=== PATIENT | female | born 1970 | race American Indian/Alaskan Native ===

== ENCOUNTER 2018-03-23 10:51 | Outpatient (CLI) | payer BC ==
--- NOTE | 2018-03-23 15:36 | Mammography Report ---
BILATERAL DIGITAL SCREENING MAMMOGRAM with CAD: 03/23/18 10:51:00 CLINICAL: Routine screening. COMPARISON:12/01/15 FINDINGS: The breasts are almost entirely fatty. No mass, architectural distortion or suspicious calcifications. IMPRESSION: No mammographic evidence of malignancy. BI-RADS CATEGORY: 1 - - Negative RECOMMENDATION: Routine mammographic screening in one year. COMMENT: Patient follow-up letters are generated by our [employer] application.
== END 2018-03-23 10:52 | disposition home or self-care (01) ==
LOC: MAMMO 10:51
PROVIDERS: ATTEND Obstetrics & Gynecology
DX: Z12.31 Encounter for screening mammogram for malignant neoplasm of breast (principal)
CPT/HCPCS: 77067

== ENCOUNTER 2018-07-28 05:56 | Inpatient (IN) | payer BC ==
--- NOTE | 2018-07-23 23:39 | History and Physical Report ---
History of Present Illness Date of examination: 07/20/18 History of present illness: Patient has been reassessed/reevaluated. H&P has been reviewed. No interval changes. This is a 48 years old female who presents with menstrual disorder. She complains of irregular menses, heavy bleeding, dysmenorrhea, history of fibroids and cramping, but denies mid-cycle spotting, lack of menses, clotting, history of ovarian cysts, history of thyroid disease, history of PCOS, history of bleeding disorder, lightheadedness and fatigue. Menstrual flow lasts > 7 days. The patient also presents with uterine fibroids. She complains of pelvic pressure, menorrhagia and intermenstrual bleeding, but denies abdominal pain, abdominal pressure and pelvic pain. Prior to today's visit the patient has had US of pelvis. Patient's work up has included hysterosonograms with benign endometrial biopisies. Patient desires definitive treatment . Vital Signs: Patient Profile: 48 Years Old Female Height: 63 inches (160.02 cm) Weight: 207 pounds (94.09 kg) BMI: 36.66 BSA: 1.96 Past History : 3 Term Births: 1 Premature Births: 0 Living Children: 1 Para: 1 Aborta: 2 Elect. Ab: 0 Spont. 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 of genital herpes: no Partner hx. of genital herpes: no Hx of STD: None Current Allergies (reviewed today): No known allergies Past Medical History: Fibroids Past Surgical History: Appendectomy salpingectomy-ectopic Family History Summary: General Comments - FH: Family History of Diabetes Social History: Patient is no e/t/d Risk Factors: Smoked Tobacco Use: Never smoker Smokeless Tobacco Use: Never Passive smoke exposure: no Drug use: no HIV high-risk behavior: no Alcohol use: no Exercise: no Seatbelt use: 100 % Review of Systems General Denies fever, chills, sweats, anorexia, fatigue, weakness, malaise, weight loss and sleep disorder. Complains of menorrhagia, abnormal vaginal bleeding and pelvic pain. Denies vaginal discharge, incontinence, dysuria, hematuria, urinary frequency, amenorrhea, genital sores, decreased libido, painful periods, painful sex, urinary urgency, hot flashes, vaginal dryness, vaginal itching and vaginal odor. CV Denies chest pains, palpitations, syncope, dyspnea on exertion, orthopnea, PND and peripheral edema. Resp Denies cough, dyspnea at rest, excessive sputum, hemoptysis, wheezing and pleurisy. GI Denies nausea, vomiting, diarrhea, constipation, change in bowel habits, abdominal pain, melena, hematochezia, jaundice, gas/bloating, indigestion/heartburn, dysphagia and odynophagia. Breast Denies left breast lump, right breast lump, nipple discharge, bloody discharge from nipple, breast pain, abnormal mammogram and breast enlargement. Psych Denies depression, anxiety, irritability and mood swings. Past History Past Medical History: other (See HPI) Past Surgical History: Other (See HPI) Social history: other (See HPI) Family history: other (See HPI) Medications and Allergies Allergies Allergy/AdvReac Type Severity Reaction Status Date / Time No Known Allergies Allergy Unverified 07/24/18 17:14 Home Medications Medication Instructions Recorded Confirmed Last Taken Type Ranitidine HCl [Zantac 150 MG TAB] 150 mg PO HS 07/24/18 07/24/18 Unknown Hist ory Review of Systems Constitutional: other (See HPI) Exam - Physical Exam Narrative exam: HEENT: normocephalic, no lesions or deformities Skin no ulcers, xanthomas Chest: respiratory effort normal, clear to auscultation Breasts: skin/areolae normal, no masses, no nipple discharge, no marquis thema/warmth/tenderness, and axillae normal. 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 No evidence of cystocele or rectocele. blood in vault Cervix: normal appearance, no lesions, no discharge Uterus: enlarged uterus 8 - 10 weeks size Adnexae: no masses or tenderness Rectovaginal: exam defered Results - Labs CBC & Chem 7: 07/27/18 10:05 07/27/18 10:05 Assessment and Plan - Patient Problems (1) Intramural leiomyoma of uterus Current Visit: No Status: Acute Plan to address problem: Diagnosis explained to patient . Questions answered. . Discussed with patient various medical, surgical and radiological therapies common for treatment including myomectomy hysterectomy and uterine artery embolization Patient desires definitive treatment Patient desires hysterectomy Discussed risks and benefits of laparotomy, laparoscopy, vaginal and robotic assisted approaches for hysterectomies Patient desires robotic assisted total hysterectomy. Patient desires robotic assisted total hysterectomy. Consent reviewed and signed . The risks and alternatives for this surgery were reviewed with the patient. Discuss the risks of the surgery including infection, bleeding possibly heavy enough to require a blood transfusion, possible damage to bowel, bladder or ureter. Courtney ent understand that this surgery with make her sterile.Patient understands if her ovaries are removed she will become menopausal. Also if unable to complete robitcally a laparotomy may be required. Patient advised the small risks of spreading of malignancy if morcellator is used during the surgery patient understands and approve of use if necessary (2) Menorrhagia Current Visit: No Status: Chronic Qualifiers: Menorrahagia type: with irregular cycle Qualified Code(s): N92.1 - Excessive and frequent menstruation with irregular cycle Plan to address problem: Probably secondary to # 1
[2018-07-27 10:32] LABS: Basophils # (Auto) 0.1 K/mm3 (0.0-0.1); Basophils % (Auto) 0.9 % (0.0-1.8); Eosinophils # (Auto) 0.2 K/mm3 (0.0-0.4); Eosinophils % (Auto) 2.7 % (0.0-4.3); Hemoglobin 8.9 gm/dl (10.1-14.3); Lymphocytes # (Auto) 1.6 K/mm3 (1.2-5.4); Mean Corpuscular HGB Conc 31 % (30-34); Mean Corpuscular Volume 83 fl (79-97); Monocytes # (Auto) 0.7 K/mm3 (0.0-0.8); Monocytes % (Auto) 10.4 % (0.0-7.3); Platelet Count 404 K/mm3 (140-440); Red Blood Count 3.48 M/mm3 (3.65-5.03)
[2018-07-27 11:02] LABS: Alanine Aminotransferase 12 units/L (7-56); Albumin 3.9 g/dL (3.9-5); BUN/Creatinine Ratio 20; Blood Urea Nitrogen 14 mg/dL (7-17); Calcium 8.9 mg/dL (8.4-10.2); Hemolysis Index 4
[~2018-07-28 05:56] MED LIST: LACTATED RINGERS 1,000 ML IV SCH; NEURONTIN PO NR; SUBLIMAZE IV ONE; VERSED IV NR
[2018-07-28] MEDS ORDERED: VERSED IV NR (07:00)
[2018-07-28] MEDS ORDERED: NEURONTIN PO NR (07:00)
[2018-07-28] MEDS ORDERED: ANCEF/STERILE WATER 2 GM/20 ML 2 GM/20 ML SYRINGE IV NR (07:00)
[2018-07-28] MEDS ORDERED: DECADRON ONE (07:22)
[2018-07-28] MEDS ORDERED: XYLOCAINE MPF 2% ONE (07:23)
[2018-07-28] MEDS ORDERED: DILAUDID ONE (07:24)
[2018-07-28] MEDS ORDERED: DIPRIVAN 10 MG/ML IV ONE (07:24)
[2018-07-28] MEDS ORDERED: SUBLIMAZE ONE (07:28)
[2018-07-28] MEDS ORDERED: NEOSPORIN GU IR ONE ×2 (07:36→09:02)
--- NOTE | 2018-07-28 07:52 | Anesthesia Consultation ---
Anesthesia Consult and Med Hx Date of service: 07/28/18 - Airway Anesthetic Teeth Evaluation: Good ROM Head & Neck: Adequate Mental/Hyoid Distance: Adequate Mallampati Class: Class II Intubation Access Assessment: Probably Good - Pulmonary Exam CTA: Yes - Cardiac Exam Cardiac Exam: RRR - Pre-Operative Health Status ASA Pre-Surgery Classification: ASA2 Proposed Anesthetic Plan: General Nerve Block: TAP - Pulmonary Hx Smoking: No Hx Asthma: No Hx Respiratory Symptoms: No (no recent cough or flu-like symptoms) - Cardiovascular System Hx Hypertension: No Hx Heart Attack/AMI: No Hx Percutaneous Transluminal Coronary Angioplasty (PTCA): No - Central Nervous System Hx Seizures: No CVA: No Hx Psychiatric Problems: No - Gastrointestinal Hx Gastroesophageal Reflux Disease: No - Endocrine Hx Renal Disease: No Hx Liver Disease: No Hx Insulin Dependent Diabetes: No Hx Non-Insulin Dependent Diabetes: No Hx Thyroid Disease: No - Hematic Hx Anemia: Yes (Hb 8.9) - Other Systems Hx Obesity: Yes - Additional Comments Anesthesia Medical History Comments: No hx anesthetic complications. Consented for preop TAP block.
--- NOTE | 2018-07-28 07:52 | Anesthesia Day of Surgery ---
Anesthesia Day of Surgery - Day of Surgery Patient Examined: Yes Patient H&P Reviewed: Yes Patient is NPO: Yes
[2018-07-28] MEDS ORDERED: NACL 0.9% IR ONE ×2 (09:02→09:03)
[2018-07-28] MEDS ORDERED: ZEMURON IV ONE (10:15)
[2018-07-28] MEDS ORDERED: ZOFRAN ONE (10:19)
[2018-07-28] MEDS ORDERED: ROBINUL ONE (10:19)
[2018-07-28] MEDS ORDERED: TORADOL ONE (10:19)
[2018-07-28] MEDS ORDERED: BLOXIVERZ ONE (10:19)
--- NOTE | 2018-07-28 10:26 | Operative Report ---
Operative Report Operative Report: Date of procedure: 07/28/2018 Pre-operative diagnosis: Symptomatic leiomyomata with menorrhagia Post-operative diagnosis: Same plus pelvic adhesive disease Procedure name(s):Robotic Assisted Total Hysterectomy with bilateral salpingectomy and lysis of adhesions Surgeon: Ronal Mitchell MD Construction Cost Estimator: Viola Davey certified juvenile probation officer Anesthesia: General EBL: 50 mL Complications: None Findings: Patient had omental adhesions to the left adnexa and anterior abdominal wall. An absent right fallopian tube had normal appearing ovaries bilaterally with simple cyst on the right ovary. Enlarged uterus approximately 10 weeks size with leiomyomata. Specimen(s): Uterus with cervix and left fallopian tube Procedure: Patient was brought to the operating room where general anesthesia was induced without difficulty. Patient was placed in the dorsal lithotomy position. Prepped and draped in the usual sterile manner for robotic procedure. Bryan catheter was placed without difficulty. Speculum was placed in the vagina. A MEDIUM V-Care Uterine manipulator was placed without difficulty. Attention was now switched to the patient's abdomen. A vertical supra-umbilicus incision was made with a scalpel. A 10-12 trocar was placed in this incision under direct visualization. Intra-abdominal placement was verified with no evidence of internal organ damage. The patient pelvic findings were noted as above. It was determined that the patient was a candidate for robotic procedure. On both sides the supra-umbilical incision at about 8 cm, incisions were made for robotic trocar. Each robotic trocar was placed under direct visualization with no evidence of internal organ damage. One logging assistant port was then placed. A 5mm trocar was placed 2 fingerbreadths above the right iliac crest. At this time the patient was placed in extreme Trendelenburg. The da Souleymane robot was then docked on the patient's left side. The trocars connected to the robot appropriately. At this time I took my place under the robotic operating barber. The omental adhesions were taken down with both by cautery and unipolar scissors into proximal reestablishing normal anatomy adhesions from sidewall and anterior abdominal wall freeing the left adnexa. Distal salpingectomy was performed by cauterizing the mesosalpinx of the tube and cut and the mesosalpinx from proximal end until the fimbriated end. The tube was removed from the certified nursing assistant port. On the patient's right side the Utero-ovarian complex was cauterized and cut. This was followed by cauterizing and cutting the right fallopian tube and right round ligament. The broad ligament was then opened. The bladder flap was formed anteriorly. The posterior broad ligament was then excised. The uterine vessels were skeletonized. The ureter was clearly seen out of the operative field. The bladder was pushed away from the anterior uterus. Attention was then switched to the patient's left side. The same procedure was repeated on the left side , first by isolating the uterine vessels cauterized and cutting and completing the bladder flap from the left side. At this time the uterus was appearing very cyanotic. After inspecting the bladder flap insured no evidence of bladder injury, the colpotomy was then started. Incision started at 6:00 until the V-Care could be seen. This incision was extended from 6:00 to 9:00. Then from 6:00 to 3:00. Then from 9:00 to 12:00. This incision was extended from 3:00 to 12:00. At this time colpotomy was complete with no evidence of adjacent organ damage. The logging assistant remove the uterus from through the colpotomy site. The vaginal cuff was irrigated and cauterized and found to be hemostatic. The cuff was closed with roboticly using 0 V- Lock suture. This closure was hemostatic after irrigation and Bovie. All pedicles were inspected and found to be hemostatic. The ureters were identified bilaterally and found to be functioning normal. The patient had clear urine in the Bryan catheter with no evidence of mixture with blood. Josefina was placed on the cuff and pedicles for postoperative hemostasis . All instruments were then removed. The large trocar sites were closed in layers with 0 and 4-0 Vicryl. The smaller incisions were closed subcuticularly with 4-0 Vicryl. The patient tolerated procedure well. She was awakened in the operating room and accompanied to the recovery room in good condition.
[2018-07-28] MEDS: DILAUDID IV PRN ×2 (11:18→11:35)
[2018-07-28] MEDS ORDERED: D5LR 1,000 ML IV ONE (11:18)
[2018-07-28] MEDS ORDERED: ZOFRAN IV PRN (12:46)
[2018-07-28] MEDS ORDERED: MILK OF MAGNESIA PO PRN (12:46)
[2018-07-28] MEDS: TORADOL IV SCH ×2 (13:06→18:43)
[2018-07-28] MEDS: D5LR 1,000 ML IV SCH ×2 (13:06→21:42)
[2018-07-28] MEDS: ANCEF/NS 1 GM/50 ML 1 GM/50 ML BAG IV SCH (16:10)
--- NOTE | 2018-07-28 17:42 | Event Note ---
Date: 07/28/18 Day of surgery. Discuss operative findings with patient and questions answered. Patient without fever. Will ambulate in halls this evening. Good urine output. We will continue routine postoperative care.
--- NOTE | 2018-07-28 18:48 | Post Anesthesia Evaluation ---
- Post Anesthesia Evaluation Patient Participated: Yes Airway Patent: Yes Stable Respiratory Function: Yes Nausea/Vomiting: No Temp > 96.8F: Yes Pain Manageable: Yes Adequeate Hydration: Yes Anesthesia Complications: No
[2018-07-28] MEDS: NORCO 5/325 PO PRN (20:23)
[2018-07-28] MEDS: COLACE PO SCH (21:42)
[2018-07-29] MEDS: ANCEF/NS 1 GM/50 ML 1 GM/50 ML BAG IV SCH (00:12)
[2018-07-29] MEDS: TORADOL IV SCH (00:12)
[2018-07-29 02:50] LABS: Hematocrit 24.5 % (30.3-42.9); Hemoglobin 7.5 gm/dl (10.1-14.3)
[2018-07-29] MEDS ORDERED: TORADOL IV NR (06:30)
[2018-07-29 08:28] LABS: Hematocrit 23.9 % (30.3-42.9); Hemoglobin 7.5 gm/dl (10.1-14.3)
--- NOTE | 2018-07-29 10:02 | Discharge Summary ---
Providers - Providers Date of Admission: 07/28/18 10:38 Date of discharge: 07/29/18 Attending physician: FLORENCIA FREGOSO Primary care physician: CLEMENTINE YANG Hospitalization Reason for admission: symptomatic leiomyomata Condition: Good Procedures: Robotic-assisted hysterectomy with lysis of adhesions Hospital course: Patient was admitted and underwent above procedure without complications. Her post operative course was benign she was afebrile throughout. Patient postoperative day 1 hematocrit was in an acceptable range. Patient had no orthostatic symptoms. Patient was tolerating regular diet and voiding without difficulty at time of discharge. Patient incision was healing well without evidence of infection. Disposition: DC-01 TO HOME OR SELFCARE - Discharge Diagnoses (1) Intramural leiomyoma of uterus Status: Resolved (2) Menorrhagia Status: Resolved Qualifiers: Menorrahagia type: with irregular cycle Qualified Code(s): N92.1 - Excessive and frequent menstruation with irregular cycle Core Measure Documentation - Palliative Care Palliative Care/ Comfort Measures: Not Applicable - Core Measures Any of the following diagnoses?: none Exam - Constitutional Vitals: Temp Pulse Resp BP Pulse Ox 99.0 F 73 18 113/47 100 07/29/18 07:10 07/29/18 07:10 07/29/18 07:10 07/29/18 07:10 07/28/18 12:30 General appearance: Present: no acute distress - Neck Neck: Present: supple - Respiratory Respiratory effort: normal - Cardiovascular Rhythm: regular - Extremities Extremities: pulses symmetrical, No edema Peripheral Pulses: within normal limits - Abdominal General gastrointestinal: Present: soft, tender (appropriately), distended (slightly as inspected), normal bowel sounds Female genitourinary: Present: deferred - Integumentary Integumentary: Present: clear, warm, dry - Musculoskeletal Musculoskeletal: gait normal, strength equal bilaterally - Psychiatric Psychiatric: appropriate mood/affect, intact judgment & insight - Neurologic Neurologic: moves all extremities, gait normal Plan Activity: other (Patient instructed no heavy lifting for 4 weeks. No intercourse for 8 weeks. Call office for fever, chills, nausea, vomiting or pain not controlled by pain medications. Ambulation is encouraged. Patient's call for heavy vaginal bleeding. Patient instructed to keep her scheduled post operative office appointment.) Diet: regular Wound: open to air Follow up with: CLEMENTINE YANG MD [Primary Care Provider] - 7 Days Prescriptions: RX: Ibuprofen [Motrin 800 MG tab] 800 mg PO Q6H PRN #30 tablet PRN Reason: Pain RX: oxyCODONE /ACETAMINOPHEN [Percocet 5/325 mg] 1 - 2 tab PO Q4H PRN #25 tablet PRN Reason: Pain, Moderate
[2018-07-29] MEDS: NORCO 5/325 PO PRN (10:29)
[2018-07-29] MEDS: COLACE PO SCH (10:29)
[2018-07-29 10:46] VITALS: BP 141/47
== END 2018-07-29 11:00 | disposition home or self-care (01) | DRG 743 ==
LOC: OR 05:56 → OB 10:38
PROVIDERS: ADMIT Obstetrics & Gynecology; ATTEND Obstetrics & Gynecology
PROC: 0UT94ZZ Resection of Uterus, Percutaneous Endoscopic Approach (ICD-10-PCS; principal; 2018-07-28)
PROC: 0UT74ZZ Resection of Bilateral Fallopian Tubes, Percutaneous Endoscopic Approach (ICD-10-PCS; 2018-07-28)
PROC: 8E0W4CZ Robotic Assisted Procedure of Trunk Region, Percutaneous Endoscopic Approach (ICD-10-PCS; 2018-07-28)
DX: D25.1 Intramural leiomyoma of uterus (principal); E66.9 Obesity, unspecified; N92.1 Excessive and frequent menstruation with irregular cycle; K66.0 Peritoneal adhesions (postprocedural) (postinfection); N83.201 Unspecified ovarian cyst, right side; Z90.49 Acquired absence of other specified parts of digestive tract; Z90.79 Acquired absence of other genital organ(s); Z83.3 Family history of diabetes mellitus; Z68.35 Body mass index [BMI] 35.0-35.9, adult
CPT/HCPCS: 36415; 64450; 80053; 84703; 85014; 85018; 85025; 86850; 86900; 86901; 88302; 88307; G0378; A4217; J0690; J1100; J1170; J1885; J2250; J2405; J2704; J2710; J3010; J7120; J7121